=== PATIENT | male | born 1950 | race Caucasian/White ===

== ENCOUNTER 2017-09-07 07:57 | Emergency (ER) | payer BC, MEDICARE ==
[~2017-09-07] VITALS: Ht 170.2 cm; Wt 75.7 kg
[2017-09-07] MEDS ORDERED: MORPHINE SULFATE 5 MG/ML VIAL IV ONE (08:30)
[2017-09-07 08:41] LABS: BASOPHILS % 0.4 % (0.0-1.0); EOSINOPHILS % 0.4 % (0.0-6.0); HEMATOCRIT 39.9 % (38.2-49.6); HEMOGLOBIN 13.7 g/dL (14.0-18.0); MEAN CORPUSCULAR HEMOGLOBIN 31.4 pg (28-32); MEAN CORPUSCULAR HGB CONC 34.3 g/dL (31-35); MEAN CORPUSCULAR VOLUME 91.5 fL (81-99); MONOCYTES # (AUTO) 0.5 (0.2-0.8); MONOCYTES % 6.6 % (4.4-11.3); NEUTROPHILS # (AUTO) 6.6 (2.1-6.9); NEUTROPHILS % 80.2 % (38.7-80.0); PLATELET COUNT 251 x10e3/uL (140-360); RED BLOOD COUNT 4.36 x10e6/uL (4.3-5.7); RED CELL DISTRIBUTION WIDTH 12.7 % (11.7-14.4)
[2017-09-07 08:53] LABS: ALANINE AMINOTRANSFERASE 15 IU/L (0-55); ALBUMIN 3.9 g/dL (3.5-5.0); ALBUMIN/GLOBULIN RATIO 1.1 (0.8-2.0); ALKALINE PHOSPHATASE 95 IU/L (40-150); BLOOD UREA NITROGEN 12 mg/dL (7-26); BUN/CREATININE RATIO 14 (6-25); CALCIUM 9.8 mg/dL (8.4-10.2); CARBON DIOXIDE 23 mmol/L (22-29); CHLORIDE 105 mmol/L (98-107); CREATININE, SERUM 0.83 mg/dL (0.72-1.25); EST GLOMERULAR FILTRATION RATE > 60 ML/MIN (60-); GLUCOSE 182 mg/dL (74-118); SODIUM 139 mmol/L (136-145)
[2017-09-07] MEDS ORDERED: DEXAMETHASONE SOD PHOS 10 MG/1 ML VIAL IV ONE (09:00)
[2017-09-07] MEDS ORDERED: KETOROLAC TROMETHAMINE 30 MG/ML VIAL IV ONE (09:00)
[2017-09-07] MEDS ORDERED: TRAZODONE HCL100 MG PO (09:04)
[2017-09-07] MEDS ORDERED: CYMBALTA30 MG PO (09:04)
[2017-09-07] MEDS ORDERED: COREG3.125 MG PO (09:04)
[2017-09-07] MEDS ORDERED: FOLIC ACID1 MG PO (09:04)
[2017-09-07] MEDS ORDERED: FERROUS SULFAT324 MG PO (09:04)
[2017-09-07] MEDS ORDERED: PANTOPRAZOLE SO40 MG PO (09:04)
[2017-09-07] MEDS ORDERED: METHOTREXATE2.5 MG PO (09:04)
[2017-09-07] MEDS ORDERED: ULTRAM50 MG PO (09:04)
[2017-09-07] MEDS ORDERED: PREDNISONE5 MG PO (09:04)
--- NOTE | 2017-09-07 09:29 | Diagnostic Imaging Report ---
PROCEDURE: A single AP view of the chest and left shoulder radiographs (internal and external rotation) COMPARISON: None. INDICATIONS: SHOULDER PAIN FINDINGS: Lines/tubes: None. Lungs: The lungs are well inflated and clear. There is no evidence of pneumonia or pulmonary edema. Pleura: There is no pleural effusion or pneumothorax. Heart and mediastinum: The heart and the mediastinum are unremarkable. Bones: No acute bony abnormality. Dedicated left shoulder radiographs demonstrate moderate to severe glenohumeral joint degenerative changes with joint space narrowing, bony osteophyte formation, subchondral sclerosis and cystic change. Mild degenerative changes of the left acromioclavicular joint. No evidence of fracture or malalignment in the left shoulder. IMPRESSION: No acute cardiopulmonary disease. Moderate to severe left glenohumeral joint osteoarthritis and mild left acromioclavicular joint osteoarthritis. Dictated by: FRANCHESKA HAGER M.D. on 09/07/2017 at 9:33 Electronically approved by: FRANCHESKA HAGER M.D. on 09/07/2017 at 9:33
[2017-09-07] MEDS ORDERED: MORPHINE SULFATE INJ 4 MG/ML INJ IV ONE (09:30)
--- NOTE | 2017-09-07 09:30 | Diagnostic Imaging Report ---
PROCEDURE:SHOULDER LEFT COMPLETE TECHNIQUE:Internal and external rotation radiographs INDICATION:Pain. COMPARISON:None. FINDINGS/CONCLUSION: Please refer to the concurrently performed chest radiograph dictation for details of left shoulder findings. Dictated by: FRANCHESKA HAGER M.D. on 09/07/2017 at 9:34 Electronically approved by: FRANCHESKA HAGER M.D. on 09/07/2017 at 9:34
[2017-09-07 11:18] VITALS: BP 155/91
== END 2017-09-07 11:32 | disposition home or self-care (01) ==
LOC: ER 07:57
DX: M79.622 Pain in left upper arm (principal); M25.512 Pain in left shoulder; R73.9 Hyperglycemia, unspecified; I51.9 Heart disease, unspecified; I10 Essential (primary) hypertension; I25.10 Atherosclerotic heart disease of native coronary artery without angina pectoris
CPT/HCPCS: 36415; 71045; 73030; 80053; 84484; 85025; 93005; 99284; J1100; J1885; J2270

== ENCOUNTER 2021-02-13 09:33 | Emergency (ER) | payer BC, MEDICARE ==
[~2021-02-13] VITALS: Ht 167.6 cm; Wt 81.6 kg
[~2021-02-13 09:33] MED LIST: COREG3.125 MG PO; CYMBALTA30 MG PO; FERROUS SULFAT324 MG PO; FOLIC ACID1 MG PO; METHOTREXATE2.5 MG PO; PANTOPRAZOLE SO40 MG PO; PREDNISONE5 MG PO; TRAZODONE HCL100 MG PO; ULTRAM50 MG PO
[2021-02-13] MEDS ORDERED: SODIUM CHLORIDE 0.9% 50ML 50 ML ONE (10:29)
[2021-02-13] MEDS ORDERED: DIATRIZOATE MEGL/DIATRIZOA SOD 30 ML BTL PO ONE (10:30)
[2021-02-13] MEDS ORDERED: IOPAMIDOL 370 MG/ML 200 ML INFUS..BTL INJ ONE (10:30)
[2021-02-13] MEDS ORDERED: KETOROLAC TROMETHAMINE 30 MG/ML VIAL IV STA (11:31)
[2021-02-13] MEDS ORDERED: CIPRO500 MG PO (12:37)
[2021-02-13] MEDS ORDERED: METRONIDAZOLE500 MG PO (12:38)
[2021-02-13] MEDS ORDERED: DICYCLOMINE HCL20 MG PO (12:39)
[2021-02-13] MEDS ORDERED: PROMETHAZINE12.5 M1 PO (12:41)
[2021-02-13] MEDS ORDERED: DICYCLOMINE HCL 20 MG TAB PO ONE (12:45)
[2021-02-13] MEDS ORDERED: CIPROFLOXACIN 500 MG TAB PO SCH (12:45)
[2021-02-13] MEDS ORDERED: METRONIDAZOLE 500 MG TAB PO SCH (12:45)
[2021-02-13] MEDS ORDERED: DICYCLOMINE HCL 10 MG CAP ONE (12:50)
== END 2021-02-13 13:15 | disposition home or self-care (01) ==
LOC: FSED 09:48
DX: R10.32 Left lower quadrant pain (principal); K57.32 Diverticulitis of large intestine without perforation or abscess without bleeding; M47.816 Spondylosis without myelopathy or radiculopathy, lumbar region; I10 Essential (primary) hypertension; E78.5 Hyperlipidemia, unspecified; I25.10 Atherosclerotic heart disease of native coronary artery without angina pectoris; F17.210 Nicotine dependence, cigarettes, uncomplicated
CPT/HCPCS: 74177; 99283; J1885; Q9967